=== PATIENT | male | born 1975 | race American Indian/Alaskan Native ===

== ENCOUNTER 2018-12-03 22:08 | Emergency (ER) | payer OTHER, MEDICAID ==
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
[2018-12-03 23:17] VITALS: BP 153/102
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
--- NOTE | 2018-12-03 23:41 | XRay Report ---
PROCEDURE: LUMBAR SPINE, 2 VIEWS TECHNIQUE: Lumbar spine radiographs, frontal and lateral views. CPT 10765 HISTORY: Pain COMPARISONS: None . FINDINGS: Alignment: Normal . Vertebral body heights/Disk spaces: Normal . Fracture(s): None . Facets: Normal . Bone mineralization: Normal . IMPRESSION: Normal Examination . This document is electronically signed by Olegario Richmond MD., Dec 03 2018 11:39:36 PM ET
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
== END 2018-12-04 02:57 | disposition home or self-care (01) ==
LOC: ED 22:08
DX: S46.911A Strain of unspecified muscle, fascia and tendon at shoulder and upper arm level, right arm, initial encounter (principal); R07.89 Other chest pain; M19.90 Unspecified osteoarthritis, unspecified site; J45.909 Unspecified asthma, uncomplicated; V89.2XXA Person injured in unspecified motor-vehicle accident, traffic, initial encounter; Y93.89 Activity, other specified; Y92.488 Other paved roadways as the place of occurrence of the external cause; Y99.8 Other external cause status
CPT/HCPCS: 71046; 72100; 99283